=== PATIENT | female | born 1960 | race Caucasian/White ===

== ENCOUNTER 2016-09-23 06:42 | Inpatient (IN) | payer BC ==
[2016-09-01 14:19] VITALS: BMI 42.0
--- NOTE | 2016-09-01 14:58 | PAT Medication Instructions ---
Service Date Sep 01, 2016. Current Home Medication List Lisinopril/Hctz (Prinzide 20-25MG), 1 TAB PO QAM Metformin Hcl (Glucophage Ext Rel), 1,000 MG PO BID Metoprolol Succ (Toprol Xl) (Toprol-Xl), 50 MG PO QAM Naproxen (Aleve), 220 MG PO BID Simvastatin (Zocor), 20 MG PO QPM Medication Instructions For Your Scheduled Surgery - Check with surgeon for instructions: Naproxen (Aleve), 220 MG PO BID - Hold the following medications 48 hours prior to surgery: Metformin Hcl (Glucophage Ext Rel), 1,000 MG PO BID - Hold the following medications the morning of surgery: Lisinopril/Hctz (Prinzide 20-25MG), 1 TAB PO QAM - Take the following medications the morning of surgery with a sip of water: Metoprolol Succ (Toprol Xl) (Toprol-Xl), 50 MG PO QAM - Take the following medications as scheduled the night before surgery: Simvastatin (Zocor), 20 MG PO QPM If you have any questions please call us at [phone] (Paige Bledsoe PA-C ) or [phone] or [phone]
[2016-09-01 15:42] LABS: BASO % 0.5 %; BASO ABS # 0.04 K/uL (0-0.2); COMPLETE YES; EOS % 3.6 %; IG% 0.3 %; LYMPH % 31.5 %; LYMPH ABS # 2.34 K/uL (1.2-3.4); MEAN CELL VOLUME 88.7 fL (80-100); MEAN CORPUSCULAR HGB CONC 34.9 g/dl (32-36); MEAN PLATELET VOLUME 10.7 fL (7.4-10.4); MONO % 8.2 %; NEUT % 55.9 %; PLATELET COUNT 316 K/uL (130-400); RED BLOOD COUNT 4.62 M/uL (4.2-5.4); WHITE BLOOD COUNT 7.43 K/uL (4.8-10.8)
--- NOTE | 2016-09-01 15:44 | DIAGNOSTIC IMAGING REPORT ---
CHEST 2 VIEWS ROUTINE CLINICAL HISTORY: PAT preoperative evaluation COMPARISON STUDY: No previous studies for comparison. FINDINGS: The bones soft tissues and hemidiaphragms are normal. The cardiomediastinal silhouette is normal. The lungs are clear. The pulmonary vasculature is normal. IMPRESSION: Negative chest. Electronically signed by: Julio Gilman M.D. 09/01/2016 3:43 PM Dictated Date/Time: 09/01/2016 3:42 PM
[2016-09-01 15:52] LABS: PROTHROMBIN TIME (PATIENT) 10.3 SECONDS (9.0-12.0)
[2016-09-01 16:10] LABS: CALCIUM 9.4 mg/dl (8.5-10.1); CREATININE 1.3 mg/dl (0.60-1.20); POTASSIUM 3.6 mmol/L (3.5-5.1)
--- NOTE | 2016-09-16 18:52 | HISTORY & PHYSICAL EXAMINATION ---
DATE OF ADMISSION: 09/23/2016 CHIEF COMPLAINT: Bilateral knee pain, right side greater than left. HISTORY OF PRESENT ILLNESS: The patient is a 56-year-old female who presents for treatment of her knees. She has a long history of bilateral knee pain and discomfort, right side greater than left. The shots have not helped anymore. Pain has become gradual and progressive in nature to the point where she is having trouble with standing for any long periods of time. It makes her job difficult. She has limited walking tolerance. The more she walks, the more she limps. She would like to have her right knee replaced. The right is worse than left. PAST MEDICAL HISTORY: 1. Hypertension. 2. Prediabetes. 3. Obesity with a BMI of 43. 4. Kidney stones. PAST SURGICAL HISTORY: x4 with abdominoplasty. ALLERGIES: 1. TYLOX. 2. MORPHINE WHICH CAUSES DECREASED HEART RATE. CURRENT MEDICINES: Include: 1. Metformin 1000 mg twice a day. 2. Dyazide 20 mg. 3. Metoprolol 50 mg a day. 4. Hydrochlorothiazide once a day. 5. Simvastatin once a day. 6. Aleve. SOCIAL HISTORY: A 56-year-old female. She is . Works as a teacher at [employer]. She lives in [place]. FAMILY HISTORY: Noncontributory. REVIEW OF SYSTEMS: Significant for prediabetes. Denies any chest pain, no shortness of breath. No history of DVT or PE. PHYSICAL EXAMINATION: GENERAL: Healthy, pleasant, middle-aged female. She looks to be in good health. HEENT: Benign. NECK: Supple. No lymphadenopathy. LUNGS: Clear to auscultation. HEART: Regular rate and rhythm. ABDOMEN: Soft, nontender, nondistended. EXTREMITIES: Grossly neurovascularly intact except as follows: Examination of both lower extremities reveals the patient walks with a waddling gait. She limps a little bit more on the right than left. Examination of the right knee reveals slight varus alignment. Range of motion is 5 to about 95. Pretty stiff knee. No pain with hip motion. Examination of the left knee reveals slight varus alignment. Moderate soft tissue envelope. Range of motion 5-115. No instability. X-RAYS: X-rays of both knees were reviewed. It shows advanced bilateral knee DJD. She has got complete loss of her medial joint space on both sides. She has tricompartmental disease with posterior osteophytes. 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 She has failed conservative treatment and would like to have her right knee replaced. PLAN: We are going to proceed with right knee replacement. The risks and benefits of this procedure were explained to the patient including but not limited to DVT, PE, , infection, neurological injury, vascular injury, bleeding problem, pain, limited range of motion, stiffness, failure to relieve her symptoms, incomplete relief of symptoms, need for further surgery in the future, fracture, leg length inequality, nerve palsy, etc. The patient understands and desires to proceed. Informed consent was obtained. She is fully aware due to her young age and large size that she may need this revised in the future. As far as discharge plans, she is planning to be discharged to home using [facility] home health program. We did talk to her about holding her metformin 2 days preoperatively, and make sure she takes the metoprolol the morning of surgery. If she does well, we will consider doing her left knee 3 months later.
[2016-09-23] VITALS (9 sets, daily range): BP systolic 113–174; BP diastolic 70–95; PULSE 61–75; TEMP 36.4–36.9; O2SAT 94–99; Ht 170.2 cm; Wt 124.2 kg
[~2016-09-23] VITALS: Ht 170.2 cm; Wt 124.2 kg
[~2016-09-23 06:42] MED LIST: ACETAMINOPHEN 500 MG TAB PO SCH; BUPIVACAINE 0.25% 30 ML VIAL ONE; BUPIVACAINE 0.5 % 5 MG/1 ML PF 10ML VIAL ONE; BUPIVACAINE LIPOSOME 266 MG, BUPIVACAINE/EPINEPHRINE INJ 50 ML, SODIUM CHLORIDE 0.9% PF... INFIL SCH; CEFAZOLIN 2000 MG/60 ML D5W 60 ML IV SCH; CEFAZOLIN 3000 MG/65 ML D5W 65 ML IV SCH; DEXAMETHASONE 4 MG TAB PO SCH; FAMOTIDINE 20 MG TAB PO SCH; GABAPENTIN 300 MG CAP PO SCH; LACTATED RINGER'S 1000ML 1,000 ML IV SCH; LACTATED RINGER'S 1000ML IV SCH; LISI20TA55 PO; METF1TAB53 PO; METO50TA7 PO; METOCLOPRAMIDE HCL 10 MG TAB PO SCH; NAPR1TAB9 PO; SCOPOLAMINE 1.5 MG TDSY TD SCH; SIMV20TA2 PO; TRANEXAMIC ACID INJ 1,000 MG in SODIUM CHLORIDE 0.9% 100ML 100 ML IV SCH
--- NOTE | 2016-09-23 07:03 | History & Physical Bridge Note ---
H&P Re-Evaluation Bridge Note: I have examined the patient, reviewed the History & Physical and in the interval since the performance of the History & Physical I have noted the following changes of clinical significance: No changes noted
[2016-09-23] MEDS ORDERED: MIDAZOLAM HCL 1 MG/ML 2ML VIAL ONE ×3 (07:27→10:51)
[2016-09-23] MEDS ORDERED: PROPOFOL IV EMULSION 10 MG/ML 20 ML VIAL IV ONE (07:27)
[2016-09-23] MEDS ORDERED: FENTANYL CITRATE INJ 50 MCG/1 ML 2 ML VIAL ONE (07:27)
[2016-09-23] MEDS ORDERED: LIDOCAINE HCL 2% 2 ML VIAL (20MG/ML) ONE (07:27)
[2016-09-23] MEDS ORDERED: MoRPHine SULFATE PF 1 MG/ML 10 ML AMP/VIAL ONE (07:27)
[2016-09-23] MEDS ORDERED: BACITRACIN 50000 UNIT VIAL ONE (08:41)
[2016-09-23] MEDS ORDERED: BUPIVACAINE/EPINEPHRINE 0.25% 1:200,000 30 ML VIAL ONE (08:41)
[2016-09-23] MEDS ORDERED: SODIUM CHLORIDE 0.9% PF 50 ML VIAL ONE (08:41)
[2016-09-23] MEDS ORDERED: BUPIVACAINE LIPOSOME 1/3% 266 MG/20 ML VIAL INFIL ONE (08:42)
[2016-09-23] MEDS ORDERED: EpHEDrine SULFATE INJ 50 MG/ML AMP IV PRN (09:30)
[2016-09-23] MEDS ORDERED: ONDANSETRON INJ 2 MG/ML 2 ML VIAL IV PRN ×2 (09:30→11:15)
[2016-09-23] MEDS ORDERED: FENTANYL CITRATE INJ 50 MCG/1 ML 2 ML VIAL IV PRN (09:30)
[2016-09-23] MEDS ORDERED: ATROPINE SULFATE 0.1 MG/ML 5ML SYR IV PRN (09:30)
[2016-09-23] MEDS ORDERED: METOCLOPRAMIDE HCL INJ 5 MG/ML 2 ML VIAL ONE (09:38)
[2016-09-23] MEDS ORDERED: PHENYLEPHRINE 100MCG/ML 5ML SYR ONE (09:38)
[2016-09-23] MEDS ORDERED: EpHEDrine SULFATE 50MG/5ML SYR ONE (09:38)
[2016-09-23] MEDS ORDERED: GLYCOPYRROLATE INJ 0.2 MG/ML VIAL ONE ×2 (09:38→09:39)
--- NOTE | 2016-09-23 11:10 | [facility] Post Operative Brief Note ---
Immediate Operative Summary Operative Date Sep 23, 2016. Pre-Operative Diagnosis Right Knee Advanced Degenerative Joint Disease Post-Operative Diagnosis Right Knee Advanced Degenerative Joint Disease Procedure(s) Performed Right Total Knee Arthroplasty Surgeon Dr. Doherty Freezing Machine Operator Surgeon(s) ASHLEY Conrad Estimated Blood Loss 50 ml Findings Left Knee DJD Fluids (cc crystalloids) 1800 cc Specimens A. Right Knee Bone and Tissue Drains None Anesthesia Spinal Complication(s) None Disposition Recovery Room / PACU
[2016-09-23] MEDS ORDERED: GLUCAGON FOR INJ 1 MG VIAL SQ PRN (11:15)
[2016-09-23] MEDS ORDERED: BISACODYL 10 MG SUPP PR PRN (11:15)
[2016-09-23] MEDS ORDERED: DEXTROSE 50% 50 ML SYR IV PRN (11:15)
[2016-09-23] MEDS ORDERED: GLUCOSE 10 TABS/TUBE PO PRN (11:15)
[2016-09-23] MEDS ORDERED: DiphenhydrAMINE HCL 50 MG/ML VIAL IV PRN (11:15)
[2016-09-23] MEDS ORDERED: MAGNESIUM HYDROXIDE SUSP 30 ML UDC PO PRN (11:15)
[2016-09-23] MEDS ORDERED: ALUMINUM/MAGNESIUM/SIMETH (MAALOX MAX) 30 ML UDC PO PRN (11:15)
[2016-09-23] MEDS ORDERED: ZOLPIDEM TARTRATE 5 MG TAB PO PRN (11:15)
[2016-09-23] MEDS ORDERED: METOCLOPRAMIDE HCL INJ 5 MG/ML 2 ML VIAL IV PRN (11:15)
[2016-09-23] MEDS ORDERED: GLUCOSE 40% GEL 15 GM TUBE PO PRN (11:15)
[2016-09-23] MEDS ORDERED: SILVER SULFADIAZINE 1% CR 50 GM JAR EXT PRN (11:15)
--- NOTE | 2016-09-23 11:36 | Anesthesiology Progress Note ---
Anesthesia Post Op Note Date & Time Sep 23, 2016 at 11:36 Vital Signs Pain Intensity: 0 Vital Signs Past 12 Hours Date Time Temp Pulse Resp B/P Pulse Ox O2 Delivery O2 Flow Rate FiO2 09/23/16 11:15 36.2 77 16 114/75 98 Mask 10 09/23/16 07:16 36.6 70 20 160/95 94 Room Air Notes Mental Status: alert / awake / arousable, participated in evaluation Pt Amnestic to Procedure: Yes Nausea / Vomiting: adequately controlled Pain: adequately controlled Airway Patency, RR, SpO2: stable & adequate BP & HR: stable & adequate Hydration State: stable & adequate Neuraxial Anesthesia: was administered, sensory block is resolving Anesthetic Complications: no major complications apparent
--- NOTE | 2016-09-23 11:47 | DIAGNOSTIC IMAGING REPORT ---
TWO VIEWS RIGHT KNEE CLINICAL HISTORY: Postoperative examination. FINDINGS: AP and crosstable lateral portable views of the right knee are obtained. A right knee arthroplasty is in near anatomic alignment. There has been undersurface remodeling of the patella. No acute fracture is seen. There are expected postoperative changes around the knee including skin clips, soft tissue edema, and subcutaneous gas. IMPRESSION: Expected postoperative changes status post right knee arthroplasty. No acute fracture is seen. Electronically signed by: Abhishek Appiah M.D. 09/23/2016 11:45 AM Dictated Date/Time: 09/23/2016 11:45 AM
--- NOTE | 2016-09-23 12:36 | OPERATIVE REPORT ---
DATE OF OPERATION: 09/23/2016 SURGEON: Carlos Doherty MD. PICK UP OPERATOR: ASHLEY Woodson. PREOPERATIVE DIAGNOSIS: Right knee degenerative joint disease. POSTOPERATIVE DIAGNOSIS: Same. PROCEDURE PERFORMED: Right cemented posterior stabilized total knee arthroplasty. COMPLICATIONS: None. ESTIMATED BLOOD LOSS: 50 mL FLUID REPLACEMENT: 1800 mL crystalloid fluid replacement. ANESTHESIA: Spinal with adductor canal block. DRAINS: None. SPECIMENS: Right knee sent for pathology. TOURNIQUET TIME: 65 minutes at 350 mmHg. 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 It has just gotten more and more debilitating over time. She has failed conservative care. She elected to proceed with right total knee arthroplasty. OPERATIVE FINDINGS: Operative findings revealed advanced right knee DJD. She had a very stiff knee with about 90 degrees of flexion. She had grade 4 disease extensively in all 3 compartments, most severe in the medial compartment. She had osteophytes in all 3 compartments. Moderate size joint effusion. A large soft tissue envelope. OPERATIVE IMPLANTS: Operative implants consisted of: 1. Biomet Vanguard size 65 right posterior stabilized femoral component. 2. Biomet size 67 tibial tray. 3. A 12 mm posterior stabilized polyethylene insert. 4. A 31 x 8 all-poly patella. OPERATIVE PROCEDURE: The patient taken to the operating room, identified and placed on the operating table in supine position. All contact areas were appropriately padded. IV antibiotics were provided by anesthesia team. A spinal anesthetic and adductor canal block had been provided in the holding area. Russell catheter was placed in a sterile fashion. Right thigh tourniquet was then placed, and the right lower extremity was then prepped and draped in usual sterile fashion. The right leg was elevated and exsanguinated with Esmarch and tourniquet was placed at 350 mmHg. An anterior approach to the right knee was then performed through a longitudinal incision centered over the patella. Sharp dissection was carried out through the subcutaneous tissues down to the level of the extensor mechanism. A medial parapatellar arthrotomy incision was made. Some subperiosteal dissection was carried out medially. The fat pad was resected from beneath the patellar tendon. The lateral patellofemoral ligament was released. The patella was everted and knee was flexed. The osteophytes were taken off the distal femur. The ACL and PCL released from the distal femur and the tibia subluxated anteriorly. The external tibial alignment jig was then placed in the anterior face of the tibia and adjusted 16 mm medially. A proximal tibial cut was made to remove about 2 mm of bone from the most deficient aspect of the medial tibial plateau. Tibia was sized to a size 67. Some osteophytes were taken off medial and posteromedially. Attention was then drawn to the femur. The distal femur was entered with a sharp drill bit. Intramedullary canal was suctioned. A right 5-degree valgus cutting guide was placed. The distal femoral cutting block was pinned in place. Distal femoral cut was made to take an additional 3 mm bone off the distal femur. The femur was then sized to a size 65. We did downsize this slightly. The AP cutting block was pinned parallel to the epicondylar axis which was 3 degrees of external rotation. The anterior cut, anterior chamfer, posterior cut, and posterior chamfer cuts were made. Box cutting guide was placed and adjusted slightly lateral and box cut was made. The knee was flexed. The remnants of the medial and lateral menisci were excised. The osteophytes were taken off the posterior aspect of the femur. Trial femoral component was placed. Tibial tray was pinned in maximum external rotation, drill and stem punch were used to create defect in proximal tibia for the tibial tray. The knee was then trialed and a 12 mm insert fit most appropriately. Attention was then drawn to the patella. The patella was cleaned off all soft tissues. Patella thickness measured about 18 mm. It was cut down to 13. It was sized to a size 31 patella. Lug holes were drilled for a 31 patella. Lateral osteophytes removed. Patella button was placed. Knee was taken through range of motion and patella tracked nicely with no thumbs test. Attention was then drawn toward placement of permanent components. All trial components were removed. A bone plug was placed in the distal femur to limit blood loss. A double batch of Palacos G cement was mixed. A right size 65 posterior stabilized femoral component, size 67 tibial tray, 12 mm posterior stabilized polyethylene insert, and a 31 x 8 all-poly patella was then cemented in place. The knee was brought out into full extension until cement hardened and a final cement check was then performed. Pericapsular tissues were injected with 100 mL of a combination of 20 mL of Exparel, 30 mL of normal saline, 50 mL of 0.25% Marcaine with epinephrine. The patient did receive 1 gram of tranexamic acid. The tourniquet was then let down for a tourniquet time of 65 minutes. Hemostasis was assured with use of electrocautery. The wound was once again irrigated. The extensor mechanism was then closed with a combination of #1 PDS suture and #1 Vicryl suture in a [id number] fashion. Extensor mechanism was checked and found to be intact. The subcutaneous tissues were then closed with 2-0 Dexon suture in a buried interrupted fashion. Skin was closed with skin shara. The leg was then cleaned and dried, and a sterile dressing of Xeroform, 4 x 4, sterile cast padding and Shamir bandage were applied. The patient was then transferred to the recovery room in stable condition. The patient tolerated the procedure with no complications. All needle and sponge counts were correct at the end of the operation. I attest to the content of the Intraoperative Record and any orders documented therein. Any exceptions are noted below. MTDD
[2016-09-23] MEDS: SODIUM CHLORIDE 0.9% 1000ML 1,000 ML IV SCH ×2 (13:20→18:02)
[2016-09-23] MEDS: HYDROmorphone INJ 0.5 MG/0.5 ML SYR IV PRN ×2 (13:23→16:55)
[2016-09-23] MEDS: KETOROLAC TROMETHAMINE 30 MG/ML VIAL IV. SCH ×2 (13:35→20:10)
--- NOTE | 2016-09-23 13:50 | PROGRESS NOTE ---
DATE: 09/23/2016 DATE: 09/23/2016. SUBJECTIVE: A 56-year-old female postop from a right knee replacement. She is doing well. Just starting to get pain in her quad area. Denies any chest pain or shortness of breath. Not feeling dizzy or lightheaded. OBJECTIVE: VITAL SIGNS: Temperature is 36.4. Vital signs stable. PHYSICAL EXAMINATION: GENERAL: Reveals a healthy pleasant, middle-aged female. She is sitting up in bed and she is eating her lunch. She looks comfortable. LUNGS: Clear to auscultation. HEART: Regular rate and rhythm. ABDOMEN: Soft, nontender, nondistended. EXTREMITY EXAMINATION: Grossly neurovascularly intact except as follows: Examination of the right lower extremity reveals the leg to be well aligned. Dressing is clean, dry and intact. She can dorsiflex and plantarflex her foot appropriately. She is neurologically intact. X-RAYS: X-rays of the right knee from recovery room were reviewed. They are extremely rotated films. Poor quality. No signs of any obvious problems. ASSESSMENT: A 56-year-old white female postop from a right knee replacement, doing well. Pain is controlled. She is neurologically intact. PLAN: 1. DVT prophylaxis including thigh-high TEDs, SCDs, and aspirin twice a day. 2. PT/OT. Weight bear as tolerated. Right total knee protocol. 3. IV antibiotics x24 hours. 4. Pain control. Doing pretty well with current pain regimen. We will obviously need to increase her pain meds as her block wears off. 5. Disposition: She is planning to be discharged home with home health once adequately recovered.
[2016-09-23] MEDS: CHECK SCOPOLAMINE PATCH PLACEMENT SCH (16:02)
[2016-09-23] MEDS: INSULIN HUMAN REGULAR SC SCH ×2 (17:15→20:58)
[2016-09-23] MEDS ORDERED: TRANEXAMIC ACID INJ 1,000 MG in SODIUM CHLORIDE 0.9% 100ML 100 ML IV SCH (18:00)
[2016-09-23] MEDS: FERROUS GLUCONATE 324 MG TAB PO SCH (18:01)
[2016-09-23] MEDS: CEFAZOLIN IV 2,000 MG in DEXTROSE 5% 50ML 50 ML IV SCH (18:37)
[2016-09-23] MEDS: DOCUSATE SODIUM 100 MG CAP PO SCH (20:59)
[2016-09-23] MEDS: ASPIRIN 325 MG ECTAB PO SCH (20:59)
[2016-09-23] MEDS: SIMVASTATIN 20 MG TAB PO SCH (20:59)
[2016-09-23] MEDS: TAPENTADOL ER 50 MG TABCR PO SCH (20:59)
[2016-09-24] MEDS: SODIUM CHLORIDE 0.9% 1000ML 1,000 ML IV SCH ×2 (00:11→07:08)
[2016-09-24] MEDS: CHECK SCOPOLAMINE PATCH PLACEMENT SCH ×4 (00:12→23:30)
[2016-09-24] MEDS: CEFAZOLIN IV 2,000 MG in DEXTROSE 5% 50ML 50 ML IV SCH (02:11)
[2016-09-24] MEDS: KETOROLAC TROMETHAMINE 30 MG/ML VIAL IV. SCH ×4 (02:11→20:03)
[2016-09-24 04:00] VITALS: BP 156/87; PULSE 70; TEMP 36.8; O2SAT 96
[2016-09-24 06:08] LABS: HEMATOCRIT 35.6 % (37-47); MEAN CELL VOLUME 88.8 fL (80-100); MEAN CORPUSCULAR HEMOGLOBIN 30.4 pg (25-34); MEAN CORPUSCULAR HGB CONC 34.3 g/dl (32-36); MEAN PLATELET VOLUME 10.1 fL (7.4-10.4); PLATELET COUNT 222 K/uL (130-400); RED BLOOD COUNT 4.01 M/uL (4.2-5.4); WHITE BLOOD COUNT 7.65 K/uL (4.8-10.8)
[2016-09-24 07:08] LABS: BLOOD UREA NITROGEN 13 mg/dl (7-18); BUN/CREATININE RATIO 16.5 (10-20); CALCIUM 8.2 mg/dl (8.5-10.1); CARBON DIOXIDE 26 mmol/L (21-32); CHLORIDE 106 mmol/L (98-107); CREATININE 0.81 mg/dl (0.60-1.20); GLUCOSE 113 mg/dl (70-99); SODIUM 141 mmol/L (136-145)
[2016-09-24] MEDS ORDERED: ASPEC325 PO (07:34)
[2016-09-24] MEDS ORDERED: NAPR1TAB9 PO (07:34)
[2016-09-24] MEDS ORDERED: ACET-1138 PO (07:34)
[2016-09-24] MEDS ORDERED: DLD2 PO (07:34)
[2016-09-24 07:39] VITALS: BP 148/85; PULSE 73; TEMP 36.8; O2SAT 97
--- NOTE | 2016-09-24 08:19 | PROGRESS NOTE ---
DATE: 09/24/2016 SUBJECTIVE: A 56-year-old female postop day 1 from right knee replacement. She is doing pretty well. Pain is controlled. She is doing pretty well with the Dilaudid. Denies any chest pain or shortness of breath. Not feeling dizzy or lightheaded. OBJECTIVE: VITAL SIGNS: Temperature 36.8. Vital signs stable. PHYSICAL EXAMINATION: GENERAL: Reveals a healthy, pleasant middle-aged female. She was walking out of the bathroom to her bed this morning when I saw her. She is doing pretty well with the walker. LUNGS: Clear to auscultation. HEART: Regular rate and rhythm. ABDOMEN: Soft, nontender, nondistended. EXTREMITIES: Grossly neurovascularly intact except as follows: Examination of the right lower extremity reveals the dressing to be clean, dry and intact. She can dorsiflex and plantarflex her foot appropriately. NEUROLOGIC: She is neurologically intact. LABORATORY DATA: Hemoglobin 12.2, hematocrit 35.6. Electrolytes are stable. ASSESSMENT: A 56-year-old female postop day 1 from right knee replacement, doing pretty well. Doing pretty well with the pain meds. She is neurologically intact. PLAN: 1. DVT prophylaxis including thigh-high TEDs, SCDs, and aspirin twice a day. 2. PT/OT. Weightbearing as tolerated. Right total knee protocol. 3. Pain control. Doing well with current pain regimen. 4. Disposition: Plan to discharge her home with some home health once adequately recovered.
--- NOTE | 2016-09-24 08:48 | Discharge Instructions ---
Discharge Instructions Admission Reason for Admission: Primary Gonarthrosis Bilteral, Knee Pain Discharge Discharge Diagnosis / Problem: Right Knee Replacement Discharge Goals Goal(s): Decrease discomfort, Improve function, Increase independence, Improve disease control, Therapeutic intervention Activity Recommendations Activity Limitations: per Instructions/Follow-up section Weightbearing Status: Right weightbearing . Instructions / Follow-Up Instructions / Follow-Up ACTIVITY RECOMMENDATIONS: Physical Therapy: * You will go to physical therapy three times each week for four to six weeks after your surgery in order to regain your knee range of motion and to retrain your knee to work properly. * It is just as important to make sure you are getting your knee perfectly straight as it is to regain your knee bend. * Taking a pain pill an hour before therapy can help you have a more productive and comfortable therapy session. Home Exercise: * You were shown a series of exercises (heel props, heel slides, etc.) in the hospital. Do these exercises three to four times each day including the exercises you were shown in physical therapy. Walking: * Get up and walk several times each day. For the first four weeks, try not to stand or walk for more than one hour at a time. If you do stand or walk for more than one hour, you will not hurt anything, but your knee and leg will likely swell. * As you feel comfortable, you may change from the walker or crutches to a cane and then to independent walking. MEDICATIONS: New Medicine: * You will likely be taking one or more of these medications: 1. Dilaudid - A quick and shorter-acting pain medication. Take one to two tablets every four to six hours to lessen your pain. 2. Aspirin - Thins your blood to lessen the chance of forming a blood clot. * The most common side effects of pain medicine and iron are nausea and constipation. If nausea or constipation is too much of a problem or if you have any questions about your new medicines or doses, call [facility] at [phone]. We will try to help you manage these issues. VERY IMPORTANT TO READ AND REVIEW" Pain: * The immediate post-operative period after knee replacement surgery is often quite painful. * You are given a prescription for pain medicine. You should take it, as directed, when you need it, especially before physical therapy and before going to bed. Pain that interferes with sleep is very common and can last several months. * You will likely need pain medicine for the first four to six weeks. It will not stop all of the pain. The pain will lessen and as you feel better, you may change to milder pain medicine such as Tylenol. * The most common side effects of pain medicine are nausea and constipation, so don't take more than you need. SPECIAL CARE INSTRUCTIONS: TEDs/Elastic Stockings: * The white elastic stockings help limit swelling and prevent blood clots from forming in your legs. The more you wear them, the more they work. * Wear them for six weeks after knee replacement surgery and four weeks after partial knee replacement. Prevention of Infection: * Take antibiotics one hour before any dental cleaning, dental work, urological procedure, gastrointestinal procedure or any invasive surgery in order to prevent your new joint from getting infected. * You may get the antibiotics from the doctor performing the procedure or you may call our office at before and we will call in a prescription to the pharmacy of your choice. Things to Watch For: * Drainage from the incision site that occurs more than one week after your surgery. * Severely increased knee/leg pain or swelling. * Increased redness at the incision site. * Fever above 102 degrees Fahrenheit. * Unusual chest pain or shortness of breath. * Unusual pain or burning with urination. Call [facility] at with any of the above problems or if you have any questions about your medicines or recovery. FOLLOW UP VISIT: Make an appointment to see your doctor for approximately two weeks after surgery for a progress check and staple removal by calling the office at . Current Hospital Diet Patient's current hospital diet: Diabetes Type 2 Diet Discharge Diet Recommended Diet: Diabetes Type 2 Diet Procedures Procedures Performed: Right Total Knee Arthroplasty Pending Studies Studies pending at discharge: no Medical Emergencies . Who to Call and When: Medical Emergencies: If at any time you feel your situation is an emergency, please call [phone] immediately. . Non-Emergent Contact Non-Emergency issues call your: Surgeon . "Provider Documentation" section prepared by Carlos Doherty. VTE Core Measure Inpt VTE Proph given/why not?: Other Anticoagulation, T.E.D. Stockings, SCD's
[2016-09-24] MEDS: HYDROmorphone INJ 0.5 MG/0.5 ML SYR IV PRN (08:52)
[2016-09-24] MEDS: FERROUS GLUCONATE 324 MG TAB PO SCH ×3 (08:56→18:13)
[2016-09-24] MEDS: PANTOprazole SOD 40 MG TAB PO SCH (08:56)
[2016-09-24] MEDS: MULTIVITAMIN TAB PO SCH (08:56)
[2016-09-24] MEDS: INSULIN HUMAN REGULAR SC SCH ×4 (08:56→21:00)
[2016-09-24] MEDS: METOPROLOL SUCC 50MG EXT REL TAB PO SCH (08:57)
[2016-09-24] MEDS: DOCUSATE SODIUM 100 MG CAP PO SCH ×2 (08:57→21:18)
[2016-09-24] MEDS: ASPIRIN 325 MG ECTAB PO SCH ×2 (08:57→21:18)
[2016-09-24] MEDS: LISINOPRIL/HCTZ 20/25MG TAB PO SCH (08:57)
[2016-09-24] MEDS: TAPENTADOL ER 50 MG TABCR PO SCH ×2 (09:02→21:18)
[2016-09-24] MEDS: HYDROmorphone HCL 2 MG TAB PO PRN ×3 (11:23→23:29)
[2016-09-24 11:27] VITALS: BP 162/97; PULSE 72; TEMP 36.6; O2SAT 95
[2016-09-24] MEDS: ACETAMINOPHEN 500 MG TAB PO SCH ×2 (13:51→21:19)
[2016-09-24] MEDS ORDERED: POTASSIUM CHLORIDE 10 MEQ TABCR PO ONE ×2 (15:30→21:00)
[2016-09-24 15:55] VITALS: BP 154/92; PULSE 67; TEMP 36.7; O2SAT 97
[2016-09-24] MEDS: SIMVASTATIN 20 MG TAB PO SCH (21:18)
[2016-09-24 22:55] VITALS: BP 145/84; PULSE 71; TEMP 36.9; O2SAT 96
[2016-09-25] MEDS: KETOROLAC TROMETHAMINE 30 MG/ML VIAL IV. SCH ×2 (02:22→07:35)
[2016-09-25] MEDS: ACETAMINOPHEN 500 MG TAB PO SCH (05:54)
[2016-09-25 05:59] VITALS: BP 150/86; PULSE 64; TEMP 36.4; O2SAT 96
[2016-09-25] MEDS: HYDROmorphone HCL 2 MG TAB PO PRN (07:31)
[2016-09-25] MEDS: DOCUSATE SODIUM 100 MG CAP PO SCH (07:31)
[2016-09-25 07:34] VITALS: BP 140/82; PULSE 65
[2016-09-25] MEDS: LISINOPRIL/HCTZ 20/25MG TAB PO SCH (07:34)
[2016-09-25] MEDS: METOPROLOL SUCC 50MG EXT REL TAB PO SCH (07:35)
[2016-09-25] MEDS: ASPIRIN 325 MG ECTAB PO SCH (07:35)
[2016-09-25] MEDS: FERROUS GLUCONATE 324 MG TAB PO SCH (07:35)
[2016-09-25] MEDS: PANTOprazole SOD 40 MG TAB PO SCH (07:36)
[2016-09-25] MEDS: MULTIVITAMIN TAB PO SCH (07:36)
[2016-09-25] MEDS: INSULIN HUMAN REGULAR SC SCH (07:37)
[2016-09-25] MEDS: TAPENTADOL ER 50 MG TABCR PO SCH (07:39)
[2016-09-25 09:35] VITALS: BP 140/82; PULSE 65; TEMP 36.4; O2SAT 96
--- NOTE | 2016-09-25 09:55 | PROGRESS NOTE ---
DATE: 09/25/2016 DATE: 09/25/2016. SUBJECTIVE: A 56-year-old white female postop day 2 from a right knee replacement. She is doing well. Pain is controlled. Denies any chest pain or shortness of breath. Not feeling dizzy or lightheaded. OBJECTIVE: VITAL SIGNS: Temperature 36.4. Vital signs stable. PHYSICAL EXAMINATION: GENERAL: Reveals a healthy pleasant, middle-aged female. She is sitting up in her bedside chair and looks pretty comfortable. LUNGS: Clear to auscultation. HEART: Regular rate and rhythm. ABDOMEN: Soft, nontender, nondistended. EXTREMITY EXAMINATION: Grossly neurovascularly intact except as follows: Examination of the right leg reveals the dressing to be clean, dry and intact. Just a small amount of drainage. She can dorsiflex and plantarflex her foot appropriately. She is neurologically intact. ASSESSMENT: A 56-year-old white female postop day 2 from right knee replacement, doing pretty well. Pain seems to be controlled. PLAN: 1. DVT prophylaxis including thigh-high TEDs, SCDs, and aspirin twice a day. 2. PT/OT. Weightbearing as tolerated. Right total knee protocol. 3. Pain control, doing well with current pain regimen. Pain is controlled and she is not having any problems with nausea. 4. Disposition: Plan to discharge to home with some home health.
--- NOTE | 2016-10-05 15:22 | DISCHARGE SUMMARY ---
ADMITTING PHYSICIAN AND SURGEON: Dr. Doherty. ADMITTING DIAGNOSIS: Right knee degenerative joint disease. SURGERY PERFORMED: Right total knee arthroplasty. SECONDARY DIAGNOSES: Includes hypertension, prediabetes, obesity, kidney stones. CONSULTS: None obtained. HISTORY AND PHYSICAL EXAMINATION: Well documented in the patient's chart. HOSPITAL COURSE: The patient was admitted on 09/23/2016 and underwent total knee arthroplasty, tolerated the procedure well. There were no complications. She was transferred to the PACU postoperatively and later to the orthopedic floor for further care. She was given Ancef for antibiotic prophylaxis, JUSTINO stockings, SCDs and aspirin for DVT prophylaxis. Her hemoglobin, hematocrit and vital signs were monitored during her hospital stay and remained stable. She did not require any blood transfusions. There were no complications. By postoperative day 2, she was tolerating a diabetic diet. Pain was controlled with oral pain medicine. She was participating in physical therapy and had no signs or symptoms of deep vein thrombosis. On postop day 2, she was discharged home in good condition, set up home health services. She given printed discharge instructions including prescriptions for Extra-Strength Tylenol, aspirin 325 mg b.i.d., hydromorphone. She can continue her home medications with the exception of Aleve which was changed 2 tablets b.i.d. She will continue physical therapy, weightbearing as tolerated. JUSTINO stockings. Follow up with Dr. Doherty in 10-12 days or sooner if there are problems or concerns.
[2016-12-22] MEDS ORDERED: NAPR1TAB9 PO (09:49)
[2017-01-04] MEDS ORDERED: POTA-74 PO (09:22)
[2017-01-04] MEDS ORDERED: PSEU1TAB67 PO (09:26)
[2017-01-04] MEDS ORDERED: MCRK/10 PO (10:04)
[2017-01-04] MEDS ORDERED: METO1TAB68 PO (10:10)
[2017-01-07] MEDS ORDERED: DLD2 PO (08:13)
== END 2016-09-25 11:24 | disposition home health service (06) | DRG 470 ==
LOC: ENRESERVDT → ENRESERVTM → C.ACU 06:42 → C.3E 06:45
PROVIDERS: ADMIT Orthopaedic Surgery Sports Medicine; ATTEND Orthopaedic Surgery Sports Medicine
PROC: 0SRC0J9 Replacement of Right Knee Joint with Synthetic Substitute, Cemented, Open Approach (ICD-10-PCS; principal; 2016-09-23 08:50)
DX: M17.11 Unilateral primary osteoarthritis, right knee (principal); Z68.41 Body mass index [BMI] 40.0-44.9, adult; I10 Essential (primary) hypertension; E66.01 Morbid (severe) obesity due to excess calories; E11.9 Type 2 diabetes mellitus without complications; R06.83 Snoring; Z79.899 Other long term (current) drug therapy; Z87.442 Personal history of urinary calculi

== ENCOUNTER → 2016-12-12 | Outpatient (CLI) | payer BC ==
[~2016-12-12] MED LIST changes: +ACET-1138 PO; -ACETAMINOPHEN 500 MG TAB PO SCH; +ASPEC325 PO; -BUPIVACAINE 0.25% 30 ML VIAL ONE; -BUPIVACAINE 0.5 % 5 MG/1 ML PF 10ML VIAL ONE; -BUPIVACAINE LIPOSOME 266 MG, BUPIVACAINE/EPINEPHRINE INJ 50 ML, SODIUM CHLORIDE 0.9% PF... INFIL SCH; -CEFAZOLIN 2000 MG/60 ML D5W 60 ML IV SCH; -CEFAZOLIN 3000 MG/65 ML D5W 65 ML IV SCH; -DEXAMETHASONE 4 MG TAB PO SCH; -FAMOTIDINE 20 MG TAB PO SCH; -GABAPENTIN 300 MG CAP PO SCH; +HYDR2TAB3 PO; -LACTATED RINGER'S 1000ML 1,000 ML IV SCH; -LACTATED RINGER'S 1000ML IV SCH; +MCRK/10 PO; +METO-479 PO; +METO100T44 PO; -METOCLOPRAMIDE HCL 10 MG TAB PO SCH; +POTA-74 PO; +PSEU1TAB67 PO; -SCOPOLAMINE 1.5 MG TDSY TD SCH; -TRANEXAMIC ACID INJ 1,000 MG in SODIUM CHLORIDE 0.9% 100ML 100 ML IV SCH
== END | disposition home or self-care (01) ==
LOC: C.LABBC 10:08
PROVIDERS: ATTEND Orthopaedic Surgery Sports Medicine
DX: Z01.818 Encounter for other preprocedural examination (principal)

== ENCOUNTER 2017-01-06 05:23 | Inpatient (IN) | payer BC ==
[2016-12-12 13:34] LABS: BASO % 0.6 %; BASO ABS # 0.04 K/uL (0-0.2); COMPLETE YES; EOS % 2.7 %; HEMATOCRIT 41.8 % (37-47); IG% 0.1 %; LYMPH % 27.9 %; LYMPH ABS # 1.97 K/uL (1.2-3.4); MEAN CELL VOLUME 90.5 fL (80-100); MEAN CORPUSCULAR HEMOGLOBIN 31.2 pg (25-34); MEAN CORPUSCULAR HGB CONC 34.4 g/dl (32-36); MEAN PLATELET VOLUME 10.8 fL (7.4-10.4); MONO % 8.6 %; NEUT % 60.1 %; PLATELET COUNT 284 K/uL (130-400); RED BLOOD COUNT 4.62 M/uL (4.2-5.4); WHITE BLOOD COUNT 7.06 K/uL (4.8-10.8)
[2016-12-12 13:57] LABS: PROTHROMBIN TIME (PATIENT) 10.6 SECONDS (9.0-12.0)
[2016-12-12 14:38] LABS: BLOOD UREA NITROGEN 30 mg/dl (7-18); BUN/CREATININE RATIO 27.7 (10-20); C-REACTIVE PROTEIN 0.77 mg/dl (0-0.29); CALCIUM 9.6 mg/dl (8.5-10.1); CARBON DIOXIDE 25 mmol/L (21-32); CHLORIDE 105 mmol/L (98-107); GLUCOSE 124 mg/dl (70-99); POTASSIUM 3.2 mmol/L (3.5-5.1); SODIUM 143 mmol/L (136-145)
[2016-12-22 09:49] VITALS: BMI 41.0
--- NOTE | 2016-12-30 01:23 | HISTORY & PHYSICAL EXAMINATION ---
DATE OF ADMISSION: 01/06/2017 CHIEF COMPLAINT: Left knee pain. 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 She has got a long history of bilateral knee pain and discomfort. She underwent a right knee replacement just back in 08/26/2016. She has done well from this side, very happy with the result. She continued to be bothered by left knee pain and discomfort. She has been through extensive conservative treatment. The shots helped her minimally. The p.o. medicine's barely take the edge off it. Pain has become more debilitating and she would like to have her left knee replaced. PAST MEDICAL HISTORY: 1. Hypertension. 2. Diabetes. 3. Obesity with a BMI of 42. 4. Kidney stones. PAST SURGICAL HISTORY: Includes: 1. x4 with abdominoplasty. 2. Right knee replacement done on 08/26/2016. ALLERGIES: TYLOX AND MORPHINE WHICH CAUSES DECREASED HEART RATE. No true anaphylactic reaction. She did well with Dilaudid last visit. CURRENT MEDICINES: Include: 1. Metformin 1000 mg twice a day. 2. Dyazide 20 mg a day. 3. Metoprolol 50 mg a day. 4. Hydrochlorothiazide once a day. 5. Simvastatin once a day. 6. Aleve p.r.n. SOCIAL HISTORY: A 56-year-old white female. She is . 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. Lives in [place] [facility]. FAMILY HISTORY: Noncontributory. REVIEW OF SYSTEMS: Significant for some what she calls prediabetes. Denies any chest pain or shortness of breath. No history of DVT or PE. PHYSICAL EXAMINATION: GENERAL: Reveals a pleasant, middle-aged female. She looks to be in good health. HEENT: Benign. NECK: Supple. No lymphadenopathy. LUNGS: Clear to auscultation. HEART: Regular rate and rhythm. ABDOMEN: Soft, nontender, nondistended. EXTREMITIES: Grossly neurovascularly intact except as follows: Examination of the left knee reveals the patient walks with a waddling gait. She limps on the left side. She has got varus alignment to her knee. Moderate soft tissue envelope. Range of motion is 5 to about 95. Pretty stiff knee on flexion. No instability. X-rays of the left knee were reviewed. It shows advanced left knee DJD. She has complete loss of her medial joint space. She has subchondral sclerosis. She has got tricompartmental disease. ASSESSMENT: A 56-year-old white female now 3 months out from a right knee replacement with advanced left knee degenerative joint disease. In addition, she has failed conservative treatment. She would like to proceed with left knee replacement. She is very happy with the right knee. PLAN: We will take her to the operating room and do a left total knee replacement. The risks and benefits of this procedure were explained to the patient including but not limited to DVT, PE, , infection, neurological injury, vascular injury, bleeding problem, pain, limited range of motion, stiffness, failure to relieve symptoms, incomplete relief of symptoms, need for further surgery in the future, fracture, leg length inequality, nerve palsy, persistent pain, etc. The patient understands and desires to proceed. Informed consent was obtained. We did talk about holding her metformin 2 days preoperatively. She will take her metoprolol the morning of surgery. I will likely use insulin sliding scale coverage for diabetes control. As far as pain control we will use Toradol, Dilaudid, and Tylenol. She did well with this last time and be discharged on Advil. She is planning on using the [facility] home health program.
[~2017-01-06] VITALS: Ht 172.7 cm; Wt 122.7 kg
[2017-01-06] VITALS (10 sets, daily range): BP systolic 109–169; BP diastolic 68–99; PULSE 55–69; TEMP 36.4–37; O2SAT 94–100; Ht 172.7 cm; Wt 122.7 kg
[~2017-01-06 05:23] MED LIST changes: -ASPEC325 PO; -HYDR2TAB3 PO; -MCRK/10 PO; -METO-479 PO; -METO100T44 PO
[2017-01-06] MEDS ORDERED: LACTATED RINGER'S 1000ML 1,000 ML IV SCH ×2 (06:00)
[2017-01-06] MEDS ORDERED: FAMOTIDINE 20 MG TAB PO SCH (06:00)
[2017-01-06] MEDS ORDERED: CEFAZOLIN 2000 MG/60 ML D5W 60 ML IV SCH (06:00)
[2017-01-06] MEDS ORDERED: SCOPOLAMINE 1.5 MG TDSY TD SCH (06:00)
[2017-01-06] MEDS ORDERED: CEFAZOLIN 3000 MG/65 ML D5W IV SCH (06:00)
[2017-01-06] MEDS ORDERED: ACETAMINOPHEN 500 MG TAB PO SCH (06:00)
[2017-01-06] MEDS ORDERED: METOCLOPRAMIDE HCL 10 MG TAB PO SCH (06:00)
[2017-01-06] MEDS ORDERED: LACTATED RINGER'S 1000ML 500 ML IV ONE (06:00)
[2017-01-06] MEDS ORDERED: BUPIVACAINE LIPOSOME 266 MG, BUPIVACAINE/EPINEPHRINE INJ 50 ML, SODIUM CHLORIDE 0.9% PF... INFIL SCH ×3 (06:00)
[2017-01-06] MEDS: GABAPENTIN 300 MG CAP PO SCH ×3 (06:27→10:42)
[2017-01-06] MEDS ORDERED: TRANEXAMIC ACID INJ 1,000 MG in SODIUM CHLORIDE 0.9% 100ML 100 ML IV SCH ×2 (06:30→15:00)
[2017-01-06] MEDS ORDERED: FENTANYL CITRATE INJ 50 MCG/1 ML 2 ML VIAL ONE (06:32)
[2017-01-06] MEDS ORDERED: PROPOFOL IV EMULSION 10 MG/ML 20 ML VIAL IV ONE (06:32)
[2017-01-06] MEDS ORDERED: LIDOCAINE HCL 2% 2 ML VIAL (20MG/ML) ONE (06:32)
[2017-01-06] MEDS ORDERED: MIDAZOLAM HCL 1 MG/ML 2ML VIAL ONE (06:32)
[2017-01-06] MEDS ORDERED: BUPIVACAINE/EPINEPHRINE 0.25% 1:200,000 30 ML VIAL ONE ×2 (06:33→06:37)
[2017-01-06] MEDS ORDERED: BUPIVACAINE 0.5 % 5 MG/1 ML PF 10ML VIAL ONE (06:34)
[2017-01-06] MEDS ORDERED: BUPIVACAINE LIPOSOME 1/3% 266 MG/20 ML VIAL INFIL ONE (06:37)
[2017-01-06] MEDS ORDERED: BACITRACIN 50000 UNIT VIAL ONE (06:37)
[2017-01-06] MEDS ORDERED: SODIUM CHLORIDE 0.9% PF 50 ML VIAL ONE (06:37)
[2017-01-06] MEDS ORDERED: DEXAMETHASONE SOD INJ 4 MG/ML VIAL ONE (06:44)
[2017-01-06] MEDS ORDERED: ONDANSETRON INJ 2 MG/ML 2 ML VIAL ONE (07:16)
[2017-01-06] MEDS ORDERED: METOCLOPRAMIDE HCL INJ 5 MG/ML 2 ML VIAL ONE (07:16)
[2017-01-06] MEDS ORDERED: EpHEDrine SULFATE INJ 50 MG/ML AMP ONE (07:28)
[2017-01-06] MEDS ORDERED: SODIUM CHLORIDE 0.9% INJ 10 ML VIAL ONE (07:28)
[2017-01-06] MEDS ORDERED: EpHEDrine SULFATE INJ 50 MG/ML AMP IV PRN (08:00)
[2017-01-06] MEDS ORDERED: ONDANSETRON INJ 2 MG/ML 2 ML VIAL IV PRN ×2 (08:00→08:45)
[2017-01-06] MEDS ORDERED: FENTANYL CITRATE INJ 50 MCG/1 ML 2 ML VIAL IV PRN (08:00)
[2017-01-06] MEDS ORDERED: ATROPINE SULFATE 0.1 MG/ML 5ML SYR IV PRN (08:00)
[2017-01-06] MEDS ORDERED: GLUCOSE 40% GEL 15 GM TUBE PO PRN (08:45)
[2017-01-06] MEDS ORDERED: SILVER SULFADIAZINE 1% CR 50 GM JAR EXT PRN (08:45)
[2017-01-06] MEDS ORDERED: ZOLPIDEM TARTRATE 5 MG TAB PO PRN (08:45)
[2017-01-06] MEDS ORDERED: METOCLOPRAMIDE HCL INJ 5 MG/ML 2 ML VIAL IV PRN (08:45)
[2017-01-06] MEDS ORDERED: BISACODYL 10 MG SUPP PR PRN (08:45)
[2017-01-06] MEDS ORDERED: MAGNESIUM HYDROXIDE SUSP 30 ML UDC PO PRN (08:45)
[2017-01-06] MEDS ORDERED: GLUCAGON FOR INJ 1 MG VIAL SQ PRN (08:45)
[2017-01-06] MEDS ORDERED: ALUMINUM/MAGNESIUM/SIMETH (MAALOX MAX) 30 ML UDC PO PRN (08:45)
[2017-01-06] MEDS ORDERED: GLUCOSE 10 TABS/TUBE PO PRN (08:45)
[2017-01-06] MEDS ORDERED: DiphenhydrAMINE HCL 50 MG/ML VIAL IV PRN (08:45)
[2017-01-06] MEDS ORDERED: DEXTROSE 50% 50 ML SYR IV PRN (08:45)
--- NOTE | 2017-01-06 08:45 | [facility] Post Operative Brief Note ---
Immediate Operative Summary Operative Date Jan 06, 2017. Pre-Operative Diagnosis Advanced Left Knee Degenerative Joint Disease Post-Operative Diagnosis Advanced Left Knee Degenerative Joint Disease Procedure(s) Performed Left Total Knee Arthroplasty Surgeon Dr. Doherty Wire Coating Machine Operator Surgeon(s) ASHLEY Conrad Estimated Blood Loss 50 ml Findings Left Knee DJD Fluids (cc crystalloids) 1500 cc Specimens A. Left Knee Bone and Tissue Drains None Anesthesia Spinal Complication(s) None Disposition Recovery Room / PACU
[2017-01-06] MEDS: PANTOprazole SOD 40 MG TAB PO SCH (09:00)
[2017-01-06] MEDS: TAPENTADOL ER 50 MG TABCR PO SCH ×2 (09:00→21:00)
[2017-01-06] MEDS ORDERED: METOPROLOL SUCC 50MG EXT REL TAB PO SCH (09:00)
[2017-01-06] MEDS: DOCUSATE SODIUM 100 MG CAP PO SCH ×2 (09:00→21:13)
[2017-01-06] MEDS: MULTIVITAMIN TAB PO SCH (09:00)
[2017-01-06] MEDS: ASPIRIN 325 MG ECTAB PO SCH ×2 (09:00→21:13)
[2017-01-06] MEDS: LISINOPRIL/HCTZ 20/25MG TAB PO SCH (09:00)
--- NOTE | 2017-01-06 09:09 | OPERATIVE REPORT ---
DATE OF OPERATION: 01/06/2017 SURGEON: Dr. Carlos Doherty. FARM AGENT: Carlos Martin PA-C. PREOPERATIVE DIAGNOSIS: Left knee degenerative joint disease. POSTOPERATIVE DIAGNOSIS: Same. PROCEDURE PERFORMED: Left cemented posterior stabilized total knee arthroplasty. COMPLICATIONS: None. ESTIMATED BLOOD LOSS: 50 mL. FLUID REPLACEMENT: 1500 mL crystalloid fluid replacement. TOURNIQUET TIME: 59 minutes at 300 mmHg. ANESTHESIA: Spinal with adductor canal block. DRAINS: None. SPECIMENS: Left knee sent for pathology. 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 She underwent a right knee replacement 3-1/2 months ago and has done extremely well. She has been through extensive conservative treatment with her left knee. She elected to proceed with left total knee arthroplasty. OPERATIVE FINDINGS: Operative findings revealed advanced left knee DJD. She had grade 4 [id number] disease in all 3 compartments. Large knee joint effusion. She had a stiff knee with a flexion contracture about 10 degrees. OPERATIVE IMPLANTS: Operative implants consisted of: 1. Biomet Vanguard size 62.5 left posterior stabilized femoral component. 2. Biomet size 67 tibial tray. 3. A 10 mm posterior stabilized polyethylene insert. 4. A 31 x 8 all poly patella. OPERATIVE PROCEDURE: The patient taken to the operating room, identified, and the table in supine position. All contact areas were appropriately padded. IV antibiotics were provided by anesthesia team. A spinal anesthetic and adductor canal block had been provided in the holding area. Russell catheter was placed in sterile fashion. A left thigh tourniquet was then placed. The left lower extremity was then prepped and draped in usual sterile fashion. Left leg was elevated and exsanguinated with an Esmarch and tourniquet was placed at 300 mmHg. An anterior approach to the left knee was then performed through a longitudinal incision centered over the patella. Sharp dissection was carried through the subcutaneous tissues down to the level of the extensor mechanism. A medial parapatellar arthrotomy incision was made. Some subperiosteal dissection was carried out medially. The fat pad was resected from beneath the patellar tendon. The lateral patellofemoral ligament was released. The patella was everted and knee was flexed. The osteophytes were taken off of the distal femur. The ACL and PCL were then released from the distal femur and the tibia subluxated anteriorly. The external tibial alignment jig was then placed in the anterior face of the tibia and adjusted 16 mm medially. The proximal tibial cut was made to take about a millimeter of bone from the most distant aspect of the medial tibial plateau. Some osteophytes were taken off medial and posteromedially. The tibia was sized to a size 67. Attention was then drawn to the femur. The distal femur was entered with a sharp drill. Intramedullary canal was suctioned. A left 5 degree valgus cutting guide was placed. Distal femoral cutting block was pinned in place. Distal femoral cut was made to take an additional 3 mm of bone off the distal femur. The femur was then sized to a size 62.5. We did downsize this just slightly. The AP cutting block was pinned parallel to the epicondylar axis, which was 4 degrees of external rotation. The anterior cut, anterior chamfer, posterior cut, posterior chamfer cuts were made. Box cutting guide was placed and adjusted slightly lateral and the box cut was made. The knee was flexed. The remnants of the medial and lateral menisci were excised. The osteophytes were taken off the posterior aspect of the femur. Trial femoral component was placed. Tibial tray was pinned in maximum external rotation and the drill and stem punch were used to create defect in proximal tibia for the tibial tray. The knee was then trialed and the 10 mm insert fit most appropriately. Attention was then drawn to the patella. The patella was cleaned of all soft tissues. Patella thickness measured about 18 mm in thickness and was cut down to 13. It was sized to a size 31 patella. Lug holes were drilled for the 31 patella. The lateral osteophyte was removed, patella button was placed, knee was taken through range of motion and the patella tracked nicely with no thumbs test. Attention was then drawn toward placement of permanent components. All trial components were removed. A bone plug was placed in the distal femur to limit blood loss. A double batch of Palacos G cement was mixed. A left size 62.5 posterior stabilized femoral component, size 67 tibial tray, a 10 mm posterior stabilized polyethylene insert, and a 31 x 8 all poly patella were then cemented in place. Knee was brought out into full extension until cement hardened. A final cement check was then performed. Pericapsular tissues were injected with a total of 100 mL of a combination of 20 mL of Exparel, 30 mL normal saline, 50 mL of 0.25% Marcaine with epinephrine. The patient did receive 1 gram of tranexamic acid. The tourniquet was then let down for final tourniquet time of 59 minutes. Hemostasis was assured with use of electrocautery. The extensor mechanism was then closed with a combination of #1 PDS suture and #1 Vicryl suture in a [id number] fashion. The extensor mechanism checked and found to be intact. The subcutaneous tissues were then closed with 2-0 Dexon suture in a buried interrupted fashion. Skin was closed skin shara. Leg was then cleaned and dried and a sterile dressing of Xeroform, 4 x 4, sterile cast padding and Shamir bandage were applied. The patient then transferred to the recovery room in stable condition. The patient tolerated the no complications. All needle and sponge counts were correct at the end of the operation. I attest to the content of the Intraoperative Record and any orders documented therein. Any exception s are noted below.
--- NOTE | 2017-01-06 09:10 | DIAGNOSTIC IMAGING REPORT ---
LEFT KNEE 1 OR 2 VIEWS ROUTINE CLINICAL HISTORY: Degenerative arthritis. Postop study. COMPARISON: 09/01/2016 DISCUSSION: There are postsurgical changes of a total left knee arthroplasty and patellar resurfacing. The femoral and tibial components appear well seated. Overlying surgical skin shara are visualized. There is air in the soft tissues consistent with recent surgery. IMPRESSION: Postsurgical changes of a total left knee arthroplasty. Electronically signed by: Ritesh Mclean M.D. 01/06/2017 9:09 AM Dictated Date/Time: 01/06/2017 9:08 AM
--- NOTE | 2017-01-06 10:15 | Anesthesiology Progress Note ---
Anesthesia Post Op Note Date & Time Jan 06, 2017 at 10:15 Vital Signs Pain Intensity: 0 Vital Signs Past 12 Hours Date Time Temp Pulse Resp B/P (MAP) Pulse Ox O2 Delivery O2 Flow Rate FiO2 01/06/17 09:30 36.6 55 16 130/71 98 Nasal Cannula 2 01/06/17 09:20 36.6 54 16 130/69 98 Nasal Cannula 2 01/06/17 09:10 57 16 116/63 98 Nasal Cannula 2 01/06/17 09:00 61 16 115/67 96 Nasal Cannula 2 01/06/17 08:51 37.0 63 16 123/70 95 Nasal Cannula 2 01/06/17 05:50 37 69 20 169/99 95 Room Air Notes Mental Status: alert / awake / arousable, participated in evaluation Pt Amnestic to Procedure: Yes Nausea / Vomiting: adequately controlled Pain: adequately controlled Airway Patency, RR, SpO2: stable & adequate BP & HR: stable & adequate Hydration State: stable & adequate Neuraxial Anesthesia: was administered, sensory block is resolving Anesthetic Complications: no major complications apparent
[2017-01-06] MEDS: SODIUM CHLORIDE 0.9% 1000ML 1,000 ML IV SCH ×3 (10:40→23:39)
[2017-01-06] MEDS: HYDROmorphone INJ 0.5 MG/0.5 ML SYR IV PRN ×3 (10:47→22:41)
[2017-01-06] MEDS: KETOROLAC TROMETHAMINE 30 MG/ML VIAL IV. SCH ×3 (12:17→23:38)
[2017-01-06] MEDS: INSULIN HUMAN REGULAR SC SCH ×3 (12:21→21:40)
[2017-01-06] MEDS: FERROUS GLUCONATE 324 MG TAB PO SCH ×2 (12:22→17:50)
[2017-01-06] MEDS: CEFAZOLIN IV 2,000 MG in DEXTROSE 5% 50ML 50 ML IV SCH ×2 (13:42→21:45)
[2017-01-06] MEDS: ACETAMINOPHEN 500 MG TAB PO SCH ×2 (13:44→21:37)
[2017-01-06] MEDS: CHECK SCOPOLAMINE PATCH PLACEMENT SCH (16:20)
[2017-01-06] MEDS: POTASSIUM CHLORIDE 10 MEQ TABCR PO SCH (17:50)
[2017-01-06] MEDS: SIMVASTATIN 20 MG TAB PO SCH (21:13)
[2017-01-06] MEDS: SENNA 8.6 MG TAB PO SCH (21:13)
[2017-01-07] VITALS (8 sets, daily range): BP systolic 144–170; BP diastolic 78–96; PULSE 54–60; TEMP 36.4–36.6; O2SAT 97–99
[2017-01-07] MEDS: KETOROLAC TROMETHAMINE 30 MG/ML VIAL IV. SCH ×4 (05:07→23:54)
[2017-01-07] MEDS: ACETAMINOPHEN 500 MG TAB PO SCH ×3 (05:08→21:02)
[2017-01-07] MEDS: SODIUM CHLORIDE 0.9% 1000ML 1,000 ML IV SCH (05:12)
[2017-01-07 06:23] LABS: HEMATOCRIT 34.8 % (37-47); MEAN CELL VOLUME 91.3 fL (80-100); MEAN CORPUSCULAR HEMOGLOBIN 29.4 pg (25-34); MEAN CORPUSCULAR HGB CONC 32.2 g/dl (32-36); MEAN PLATELET VOLUME 9.9 fL (7.4-10.4); PLATELET COUNT 258 K/uL (130-400); RED BLOOD COUNT 3.81 M/uL (4.2-5.4); WHITE BLOOD COUNT 8.73 K/uL (4.8-10.8)
[2017-01-07 07:08] LABS: BUN/CREATININE RATIO 22.5 (10-20); CALCIUM 8.2 mg/dl (8.5-10.1); CREATININE 0.75 mg/dl (0.60-1.20); POTASSIUM 3.6 mmol/L (3.5-5.1)
[2017-01-07] MEDS ORDERED: ACET-1138 PO (08:13)
[2017-01-07] MEDS ORDERED: HYDR2TAB3 PO (08:13)
[2017-01-07] MEDS ORDERED: ASPEC325 PO (08:13)
--- NOTE | 2017-01-07 08:15 | Discharge Instructions ---
Discharge Instructions Date of Service Jan 07, 2017. Admission Reason for Admission: Left Knee Degenerative Joint Disease, Knee Pain Discharge Discharge Diagnosis / Problem: Left Knee Replacement Discharge Goals Goal(s): Decrease discomfort, Improve function, Increase independence, Improve disease control, Therapeutic intervention Activity Recommendations Activity Limitations: per Instructions/Follow-up section Weightbearing Status: Left weightbearing . Instructions / Follow-Up Instructions / Follow-Up ACTIVITY RECOMMENDATIONS: Physical Therapy: * You will go to physical therapy three times each week for four to six weeks after your surgery in order to regain your knee range of motion and to retrain your knee to work properly. * It is just as important to make sure you are getting your knee perfectly straight as it is to regain your knee bend. * Taking a pain pill an hour before therapy can help you have a more productive and comfortable therapy session. Home Exercise: * You were shown a series of exercises (heel props, heel slides, etc.) in the hospital. Do these exercises three to four times each day including the exercises you were shown in physical therapy. Walking: * Get up and walk several times each day. For the first four weeks, try not to stand or walk for more than one hour at a time. If you do stand or walk for more than one hour, you will not hurt anything, but your knee and leg will likely swell. * As you feel comfortable, you may change from the walker or crutches to a cane and then to independent walking. MEDICATIONS: New Medicine: * You will likely be taking one or more of these medications: 1. Dilaudid - A quick and shorter-acting pain medication. Take one to two tablets every four to six hours to lessen your pain. 2. Aspirin - Thins your blood to lessen the chance of forming a blood clot. * The most common side effects of pain medicine and iron are nausea and constipation. If nausea or constipation is too much of a problem or if you have any questions about your new medicines or doses, call [facility] at . We will try to help you manage these issues. VERY IMPORTANT TO READ AND REVIEW" Pain: * The immediate post-operative period after knee replacement surgery is often quite painful. * You are given a prescription for pain medicine. You should take it, as directed, when you need it, especially before physical therapy and before going to bed. Pain that interferes with sleep is very common and can last several months. * You will likely need pain medicine for the first four to six weeks. It will not stop all of the pain. The pain will lessen and as you feel better, you may change to milder pain medicine such as Tylenol. * The most common side effects of pain medicine are nausea and constipation, so don't take more than you need. SPECIAL CARE INSTRUCTIONS: TEDs/Elastic Stockings: * The white elastic stockings help limit swelling and prevent blood clots from forming in your legs. The more you wear them, the more they work. * Wear them for six weeks after knee replacement surgery and four weeks after partial knee replacement. Prevention of Infection: * Take antibiotics one hour before any dental cleaning, dental work, urological procedure, gastrointestinal procedure or any invasive surgery in order to prevent your new joint from getting infected. * You may get the antibiotics from the doctor performing the procedure or you may call our office at before and we will call in a prescription to the pharmacy of your choice. Things to Watch For: * Drainage from the incision site that occurs more than one week after your surgery. * Severely increased knee/leg pain or swelling. * Increased redness at the incision site. * Fever above 102 degrees Fahrenheit. * Unusual chest pain or shortness of breath. * Unusual pain or burning with urination. Call [facility] at with any of the above problems or if you have any questions about your medicines or recovery. FOLLOW UP VISIT: Make an appointment to see your doctor for approximately two weeks after surgery for a progress check and staple removal by calling the office at . Current Hospital Diet Patient's current hospital diet: Diabetes Type 2 Diet Discharge Diet Recommended Diet: Diabetes Type 2 Diet Procedures Procedures Performed: Left Total Knee Arthroplasty Pending Studies Studies pending at discharge: no Medical Emergencies . Who to Call and When: Medical Emergencies: If at any time you feel your situation is an emergency, please call [phone] immediately. . Non-Emergent Contact Non-Emergency issues call your: Surgeon . "Provider Documentation" section prepared by Carlos Doherty. . VTE Core Measure Inpt VTE Proph given/why not?: Other Anticoagulation, T.E.D. Stockings, SCD's
--- NOTE | 2017-01-07 08:33 | PROGRESS NOTE ---
DATE: 01/07/2017 DATE: 01/07/2017. SUBJECTIVE: This is a 56-year-old white female postop day 1 from left knee replacement. She is doing well. Pain is controlled. Denies any chest pain or shortness of breath. Not feeling dizzy or lightheaded. She is refusing to take the Nucynta. OBJECTIVE: VITAL SIGNS: Temperature 36.4. Vital signs stable. PHYSICAL EXAMINATION: GENERAL: Reveals a healthy, pleasant middle-aged female. She is lying in bed, looks pretty comfortable. LUNGS: Clear to auscultation. HEART: Regular rate and rhythm. ABDOMEN: Soft, nontender, nondistended. EXTREMITY EXAMINATION: Grossly neurovascularly intact as follows: Examination of the left lower extremity reveals the leg to be well aligned. Dressing is clean, dry and intact. She can dorsiflex and plantarflex her foot appropriately. She is neurologically intact. LABORATORY DATA: Hemoglobin 11.2, hematocrit 34.8. Electrolytes are stable. ASSESSMENT: A 56-year-old white female postop day 1 from a left knee placement. She is doing well. Pain is controlled. She is neurologically intact. PLAN: 1. DVT prophylaxis including thigh-high TEDs, SCDs, and aspirin twice a day. 2. PT and OT. Weight-bearing as tolerated. Left total knee protocol. 3. Pain control. Doing well with current pain regimen. She does not want to take the Nucynta and that is fine. We will stick with Tylenol, Dilaudid, and Toradol. 4. Disposition: She is hoping to be discharged home with some home health once adequately recovered.
[2017-01-07] MEDS: INSULIN HUMAN REGULAR SC SCH ×4 (08:53→21:06)
[2017-01-07] MEDS: LISINOPRIL/HCTZ 20/25MG TAB PO SCH (08:54)
[2017-01-07] MEDS: FERROUS GLUCONATE 324 MG TAB PO SCH ×3 (08:55→17:24)
[2017-01-07] MEDS: DOCUSATE SODIUM 100 MG CAP PO SCH ×2 (08:55→21:02)
[2017-01-07] MEDS: ASPIRIN 325 MG ECTAB PO SCH ×2 (08:56→21:02)
[2017-01-07] MEDS: PANTOprazole SOD 40 MG TAB PO SCH (08:56)
[2017-01-07] MEDS: MULTIVITAMIN TAB PO SCH (08:56)
[2017-01-07] MEDS: POTASSIUM CHLORIDE 10 MEQ TABCR PO SCH ×2 (08:58→17:24)
[2017-01-07] MEDS: CHECK SCOPOLAMINE PATCH PLACEMENT SCH ×2 (08:58)
[2017-01-07] MEDS ORDERED: NURSING VERBAL MED ORDER ONE ×2 (09:00→11:00)
[2017-01-07] MEDS: HYDROmorphone HCL 2 MG TAB PO PRN ×4 (09:06→23:55)
[2017-01-07] MEDS ORDERED: METOPROLOL SUCC 50MG EXT REL TAB PO ONE (11:30)
[2017-01-07] MEDS: SENNA 8.6 MG TAB PO SCH (21:01)
[2017-01-07] MEDS: SIMVASTATIN 20 MG TAB PO SCH (21:01)
[2017-01-08] MEDS: HYDROmorphone HCL 2 MG TAB PO PRN ×2 (03:55→07:57)
[2017-01-08] MEDS: KETOROLAC TROMETHAMINE 30 MG/ML VIAL IV. SCH (06:00)
[2017-01-08] MEDS: ACETAMINOPHEN 500 MG TAB PO SCH (06:01)
[2017-01-08 06:45] VITALS: BP 151/84; PULSE 67; TEMP 36.9; O2SAT 98
[2017-01-08] MEDS: INSULIN HUMAN REGULAR SC SCH (07:44)
[2017-01-08] MEDS: DOCUSATE SODIUM 100 MG CAP PO SCH (07:44)
[2017-01-08] MEDS: LISINOPRIL/HCTZ 20/25MG TAB PO SCH (07:45)
[2017-01-08] MEDS: POTASSIUM CHLORIDE 10 MEQ TABCR PO SCH (07:45)
[2017-01-08] MEDS: FERROUS GLUCONATE 324 MG TAB PO SCH (07:45)
[2017-01-08] MEDS: ASPIRIN 325 MG ECTAB PO SCH (07:45)
[2017-01-08] MEDS: PANTOprazole SOD 40 MG TAB PO SCH (07:45)
[2017-01-08] MEDS: MULTIVITAMIN TAB PO SCH (07:45)
[2017-01-08 07:47] VITALS: BP 151/84; PULSE 67; TEMP 36.9; O2SAT 98
--- NOTE | 2017-01-08 12:33 | PROGRESS NOTE ---
DATE: 01/08/2017 SUBJECTIVE: A 56-year-old white female, postop day #2 from a left knee replacement. She is doing pretty well. The pain has been very well-controlled. No chest pain or shortness of breath. Not feeling dizzy or lightheaded. OBJECTIVE: VITAL SIGNS: Temperature is 36.9. Vital signs are stable. GENERAL: Physical examination reveals a pleasant middle-aged female, sitting up in her bedside chair and looks comfortable. LUNGS: Clear to auscultation. HEART: Regular rate and rhythm. ABDOMEN: Soft, nontender and nondistended. EXTREMITIES: Grossly neurovascularly intact except as follows: Examination of the left leg reveals the leg to be well-aligned. The dressing is clean, dry and intact. She can dorsiflex and plantarflex her foot appropriately. She is neurologically intact. ASSESSMENT: A 56-year-old white female, postoperative day #2 from a left knee replacement, doing pretty well. The pain has been pretty well-controlled. Therapy went well. PLAN: 1. DVT prophylaxis including thigh-high TEDs, SCDs and aspirin twice a day. 2. PT/OT. Weightbearing as tolerated. Left total knee protocol. 3. Pain control, doing pretty well with current pain regimen. 4. Disposition: Plan to discharge to home with home health later today. SANDRA
--- NOTE | 2017-01-17 15:09 | Discharge Summary ---
Orthopedic Discharge Summary Admission Date/Reason Jan 06, 2017 at 06:40 Left Knee Degenerative Joint Disease, Knee Pain. Discharge Date/Disposition Jan 08, 2017 Home with services Diagnosis Principal Diagnosis: left knee DJD Secondary Diagnoses/Problems: 1. Hypertension. 2. Diabetes. 3. Obesity with a BMI of 42. 4. Kidney stones. Procedure(s) Performed Left TKA Consultations none Medication Reconciliation New Medications: Aspirin (Aspirin) 325 Mg Ectab 325 MG PO BID for 45 Days, #90 Take to prevent blood clots. Hydromorphone HCl (Hydromorphone HCl) 2 Mg Tab 2 MG PO Q4H PRN for Pain for 30 Days, #60 TAB Take as needed for Pain. Continued Medications: Acetaminophen (Tylenol Extra Strength) 500 Mg Tab 2 TABS PO TID for 30 Days, #180 (This prescription has been renewed) Take 3 times per day to lessen pain. Lisinopril/Hctz (Prinzide 20-25MG) Tab 1 TAB PO QAM, TAB Metformin Hcl (Glucophage Ext Rel) 1,000 Mg Tab 1000 MG PO BID, TAB Metoprolol Succ (Toprol Xl) (Toprol-Xl) 50 Mg Tabcr 100 MG PO QAM, #30 TAB Naproxen (Aleve) 220 Mg Tab 440 MG PO QAM, TAB Potassium Chloride (Potassium Chloride Er) 10 Meq Tab 1 TAB PO BID for 90 Days, #180 TAB 3 Refills Pseudoephedrine Hcl (Pseudoephedrine Hcl Er) 120 Mg Tab 1 TAB PO BID for 15 Days, #30 TAB Simvastatin (Zocor) 20 Mg Tab 20 MG PO QPM, TAB Admission Physical Exam As per Admitting History & Physical. Hospital Course Clary was admitted on 6 and underwent TKA. She tolerated the procedure well. No complications. She was transferred to the pacu post op and later to the orthopedic floor for further care. She was given ancef for antibiotic prophylaxis. NIKKI's, SCD's, and aspirin for DVT prophylaxis. Hemoglobin, hematocrit, and vital signs were monitored during her hospital stay and remained stable. She did not require any blood transfusions. There were no complications during her hospital stay. By POD #2 she was tolerating a diabetic diet, pain was controlled with oral pain medicines, she was participating in PT, and had no signs or symptoms of dvt. On POD #2 she was discharged home with home health care. She was given printed discharge instructions as well as new prescriptions as above. Continue PT. WBAT. nikki stockings. follow up in 10-12 days or sooner if there are problems or concerns. Discharge Instructions Please refer to the electronic Patient Visit Report (Discharge Instructions) for additional information.
[2017-05-18] MEDS ORDERED: METO100T44 PO (15:52)
== END 2017-01-08 11:20 | disposition home health service (06) | DRG 470 ==
LOC: C.ACU 05:23 → C.3E 06:40 → ENRESERV 09:03
PROVIDERS: ADMIT Orthopaedic Surgery Sports Medicine; ATTEND Orthopaedic Surgery Sports Medicine
PROC: 0SRD0J9 Replacement of Left Knee Joint with Synthetic Substitute, Cemented, Open Approach (ICD-10-PCS; principal; 2017-01-06 07:00)
DX: M17.12 Unilateral primary osteoarthritis, left knee (principal); Z68.41 Body mass index [BMI] 40.0-44.9, adult; M21.161 Varus deformity, not elsewhere classified, right knee; I10 Essential (primary) hypertension; E11.9 Type 2 diabetes mellitus without complications; E66.01 Morbid (severe) obesity due to excess calories; Z96.651 Presence of right artificial knee joint; Z79.84 Long term (current) use of oral hypoglycemic drugs; Z79.899 Other long term (current) drug therapy